=== PATIENT | female | born 1935 | race Asian ===

== ENCOUNTER → 2017-06-22 | Outpatient (CLI) | payer OTHER ==
[~2017-06-22] MED LIST: ASPI-556 PO; DRON400T PO; GABA-531 PO; LOSA50TA37 PO; METF500T4 PO; METO25 PO; PANT40TA25 PO; SIMV-259 PO; VITAD1000 PO
== END | disposition home or self-care (01) ==
LOC: RADPV 12:24
PROVIDERS: ATTEND Internal Medicine
DX: M50.822 Other cervical disc disorders at C5-C6 level (principal); M12.88 Other specific arthropathies, not elsewhere classified, other specified site; M46.02 Spinal enthesopathy, cervical region; M47.892 Other spondylosis, cervical region; M25.511 Pain in right shoulder; M85.811 Other specified disorders of bone density and structure, right shoulder; M81.0 Age-related osteoporosis without current pathological fracture
CPT/HCPCS: 72040